=== PATIENT | male | born 1955 | race Caucasian/White ===

== ENCOUNTER 2018-12-08 17:37 | Inpatient (IN) | payer OTHER, BC ==
[~2018-12-08] VITALS: Ht 177.8 cm; Wt 162.4 kg
[2018-12-08 17:54] VITALS: BP 171/107
[2018-12-08 18:55] LABS: BASOPHILS % (AUTO) 0.5 % (0.0-2.0); EOSINOPHILS # (AUTO) 0.3 K/uL (0-0.4); EOSINOPHILS % (AUTO) 3.7 % (0.0-4.0); HEMATOCRIT 37.8 % (36-52); HEMOGLOBIN 12.1 g/dL (12.0-18.0); LYMPHOCYTES # (AUTO) 1.8 K/uL (2.0-11.5); LYMPHOCYTES % (AUTO) 20.3 % (20.5-51.1); MEAN CORPUSCULAR HEMOGLOBIN 31 pg (27-31); MEAN CORPUSCULAR HGB CONC 32 g/dL (33-37); MEAN CORPUSCULAR VOLUME 95.1 fL (80-94); MONOCYTES # (AUTO) 0.7 K/uL (0.8-1.0); MONOCYTES % (AUTO) 8.1 % (1.7-9.3); NEUTROPHILS # (AUTO) 5.9 K/uL (1.8-7.7); NEUTROPHILS % (AUTO) 67.4 % (42.2-75.2); PLATELET COUNT (AUTO) 223 K/uL (140-450); RED BLOOD CELL COUNT(AUTO) 3.97 MIL/uL (4.20-6.10); RED CELL DISTRIBUTION WIDTH 14.7 % (11.6-13.7); WHITE BLOOD COUNT (AUTO) 8.7 K/uL (4.8-10.8)
[2018-12-08 19:09] LABS: ANION GAP 13.1 (8-16); CARBON DIOXIDE 27.8 mmol/L (21-32); POTASSIUM 3.9 mmol/L (3.5-5.1)
[2018-12-08 19:15] LABS: ALBUMIN 2.7 g/dL (3.4-5.0); TOTAL BILIRUBIN 0.4 mg/dL (0.0-1.0)
[2018-12-08] MEDS ORDERED: ALBUTEROL SULFATE/IPRATROPIU 3 ML SOL IH ONE (19:45)
[2018-12-08] MEDS ORDERED: NACL 0.9% 1,000 ML IV SCH (20:17)
[2018-12-08] MEDS ORDERED: ACETAMINOPHEN 325 MG TAB PO PRN (20:20)
[2018-12-08] MEDS ORDERED: DOCUSATE SODIUM 100 MG GELCAP PO PRN (20:20)
[2018-12-08] MEDS ORDERED: LORazepam 2 MG/ML VIAL IM/IVP PRN (20:20)
[2018-12-08] MEDS ORDERED: ONDANSETRON 4 MG/2 ML VIAL IM/IVP PRN (20:20)
[2018-12-08] MEDS ORDERED: HYDROcodone/APAP 5/325 MG 1 TAB TAB PO PRN (20:20)
[2018-12-08] MEDS ORDERED: ALBUTEROL SULFATE/IPRATROPIU 3 ML SOL IH PRN (20:25)
[2018-12-08] MEDS ORDERED: amLODIPine 5 MG TAB PO SCH (21:15)
[2018-12-08 21:20] VITALS: BP 175/106
[2018-12-08 21:38] LABS: PROTHROMBIN TIME 10.4 secs (10.8-13.4)
[2018-12-08] MEDS ORDERED: INFLUENZA VIRUS VACCINE QUAD 0.5 ML SYR IMVAC PRN (22:05)
[2018-12-08] MEDS ORDERED: PNEUMOCOCCAL VACCINE 23 MCG/0.5 ML VIAL IMVAC SCH (22:05)
[2018-12-08 22:12] LABS: PHOSPHORUS 4.5 mg/dL (2.5-4.9); THYROID STIMULATING HORMONE 2.91 uIU/mL (0.34-3.74)
[2018-12-08] MEDS: METOPROLOL 25 MG TAB PO SCH (22:29)
[2018-12-08] MEDS ORDERED: METOPROLOL 25 MG TAB ONE (22:35)
[2018-12-09] VITALS: BP 204/120
[2018-12-09] MEDS ORDERED: hydrALAZINE 20 MG/ML VIAL IVP PRN (00:05)
[2018-12-09] MEDS ORDERED: cloNIDine 0.1 MG TAB PO SCH (01:25)
[2018-12-09 01:27] LABS: BARBITURATE, URINE NEG. ng/ml (NEG <=200); CANNABINOID, URINE NEG. ng/mL (NEG <=50); COCAINE, URINE NEG. ng/mL (NEG <=300); OPIATE, URINE NEG. ng/mL (NEG <=2000); PHENCYCLIDINE SCREEN,URINE NEG. ng/mL (NEG <=25)
[2018-12-09 01:51] LABS: BENZODIAZEPINE, URINE NEG. ng/mL (NEG <=200)
[2018-12-09 01:54] LABS: APPEARANCE,URINE CLEAR (CLEAR); BILIRUBIN,URINE NEGATIVE (NEGATIVE); BLOOD, URINE TRACE-L (NEGATIVE); COLOR,URINE YELLOW (YELLOW); LEUKOCYTE ESTERASE ,URINE NEGATIVE (NEGATIVE); NITRITE, URINE NEGATIVE (NEGATIVE); UGLUCOSE NEGATIVE (NEGATIVE)
[2018-12-09 01:56] LABS: RBC,URINE 0-5 (RARE) /HPF (0-5); WBC,URINE 0-5 (RARE) /HPF (0-5)
[2018-12-09 04:00] VITALS: BP 132/87
[2018-12-09 04:10] LABS: ANION GAP 9.7 (8-16); CARBON DIOXIDE 29.1 mmol/L (21-32); POTASSIUM 3.8 mmol/L (3.5-5.1)
[2018-12-09 04:15] LABS: CHOL/HDL RATIO 2.9 (1-4.5)
[2018-12-09 04:16] LABS: BASOPHILS # (AUTO) 0.1 K/uL (0.00-0.22); BASOPHILS % (AUTO) 0.7 % (0.0-2.0); EOSINOPHILS # (AUTO) 0.4 K/uL (0-0.4); EOSINOPHILS % (AUTO) 4.9 % (0.0-4.0); HEMATOCRIT 33.1 % (36-52); HEMOGLOBIN 10.7 g/dL (12.0-18.0); LYMPHOCYTES # (AUTO) 1.3 K/uL (2.0-11.5); LYMPHOCYTES % (AUTO) 16.4 % (20.5-51.1); MEAN CORPUSCULAR HEMOGLOBIN 31 pg (27-31); MEAN CORPUSCULAR HGB CONC 32 g/dL (33-37); MEAN CORPUSCULAR VOLUME 95.1 fL (80-94); MONOCYTES # (AUTO) 0.7 K/uL (0.8-1.0); MONOCYTES % (AUTO) 9.2 % (1.7-9.3); NEUTROPHILS # (AUTO) 5.5 K/uL (1.8-7.7); NEUTROPHILS % (AUTO) 68.8 % (42.2-75.2); PLATELET COUNT (AUTO) 199 K/uL (140-450); RED BLOOD CELL COUNT(AUTO) 3.48 MIL/uL (4.20-6.10); RED CELL DISTRIBUTION WIDTH 14.5 % (11.6-13.7)
[2018-12-09] MEDS: ALBUTEROL SULFATE/IPRATROPIU 3 ML SOL IH SCH ×3 (07:51→20:13)
[2018-12-09] MEDS: BUDESONIDE 0.25 MG/2 ML NEBU INH SCH ×2 (07:51→20:14)
[2018-12-09 08:00] VITALS: BP 149/93
[2018-12-09] MEDS: METOPROLOL 25 MG TAB PO SCH ×2 (08:28→20:05)
[2018-12-09] MEDS: MULTIVITAMIN/MINERALS 1 TAB PO SCH (08:29)
[2018-12-09] MEDS: CYANOCOBALAMIN 100 MCG TAB PO SCH (08:29)
[2018-12-09] MEDS: guaiFENesin DM 200/20 MG-10 ML 10 ML UDC PO PRN ×2 (08:29→20:05)
[2018-12-09] MEDS ORDERED: predniSONE 20 MG TAB PO SCH (09:16)
[2018-12-09 12:00] VITALS: BP 118/69
[2018-12-09 16:00] VITALS: BP 156/85
[2018-12-09 20:00] VITALS: BP 171/93
[2018-12-10] VITALS (7 sets, daily range): BP systolic 131–163; BP diastolic 71–98
[2018-12-10 06:58] LABS: BASOPHILS # (AUTO) 0.1 K/uL (0.00-0.22); BASOPHILS % (AUTO) 0.8 % (0.0-2.0); EOSINOPHILS # (AUTO) 0.1 K/uL (0-0.4); EOSINOPHILS % (AUTO) 1.4 % (0.0-4.0); HEMOGLOBIN 10.6 g/dL (12.0-18.0); LYMPHOCYTES # (AUTO) 1.4 K/uL (2.0-11.5); LYMPHOCYTES % (AUTO) 16.1 % (20.5-51.1); MEAN CORPUSCULAR HEMOGLOBIN 31 pg (27-31); MEAN CORPUSCULAR HGB CONC 32 g/dL (33-37); MEAN CORPUSCULAR VOLUME 95.8 fL (80-94); MONOCYTES # (AUTO) 0.9 K/uL (0.8-1.0); MONOCYTES % (AUTO) 10.1 % (1.7-9.3); NEUTROPHILS # (AUTO) 6.2 K/uL (1.8-7.7); NEUTROPHILS % (AUTO) 71.6 % (42.2-75.2); PLATELET COUNT (AUTO) 203 K/uL (140-450); RED BLOOD CELL COUNT(AUTO) 3.44 MIL/uL (4.20-6.10); RED CELL DISTRIBUTION WIDTH 14.8 % (11.6-13.7); WHITE BLOOD COUNT (AUTO) 8.7 K/uL (4.8-10.8)
[2018-12-10] MEDS: ALBUTEROL SULFATE/IPRATROPIU 3 ML SOL IH SCH ×3 (07:25→20:15)
[2018-12-10] MEDS: BUDESONIDE 0.25 MG/2 ML NEBU INH SCH ×2 (07:33→20:16)
[2018-12-10 07:41] LABS: ANION GAP 8.5 (8-16); CARBON DIOXIDE 30.8 mmol/L (21-32); POTASSIUM 4.3 mmol/L (3.5-5.1)
[2018-12-10] MEDS: NACL 0.9% 1,000 ML IV SCH ×3 (07:55→21:09)
[2018-12-10] MEDS ORDERED: predniSONE 20 MG TAB PO SCH ×2 (09:00→11:34)
[2018-12-10] MEDS: METOPROLOL 25 MG TAB PO SCH ×2 (09:09→21:08)
[2018-12-10] MEDS: POLYVINYL ALCOHOL 1.4% OP 15 ML SOL OP SCH ×3 (09:09→16:12)
[2018-12-10] MEDS: CYANOCOBALAMIN 100 MCG TAB PO SCH (09:09)
[2018-12-10] MEDS: MULTIVITAMIN/MINERALS 1 TAB PO SCH (09:09)
[2018-12-10] MEDS ORDERED: ASPIRIN 81 MG TAB.CHEW PO SCH (11:30)
[2018-12-10] MEDS ORDERED: ATORVASTATIN 20 MG TAB PO SCH (11:30)
[2018-12-10] MEDS ORDERED: amLODIPine 5 MG TAB PO SCH (13:00)
[2018-12-10] MEDS: MUPIROCIN CA NASAL 2% 1GM TUBE NS SCH (16:13)
[2018-12-10] MEDS: CHLORHEXADINE GLUC 2% CLOTH TP SCH (16:18)
[2018-12-10] MEDS ORDERED: TERAZOSIN 1 MG CAP PO SCH (21:00)
[2018-12-10] MEDS: guaiFENesin DM 200/20 MG-10 ML 10 ML UDC PO PRN (21:01)
[2018-12-10] MEDS: DABIGATRAN ETEXILATE MESYLAT 75 MG CAP PO SCH (21:06)
[2018-12-11] VITALS: BP 140/69
[2018-12-11] MEDS: NACL 0.9% 1,000 ML IV SCH ×2 (03:55→07:55)
[2018-12-11 04:00] VITALS: BP 159/66
[2018-12-11 06:33] LABS: BASOPHILS % (AUTO) 0.2 % (0.0-2.0); EOSINOPHILS # (AUTO) 0.1 K/uL (0-0.4); HEMATOCRIT 32.6 % (36-52); HEMOGLOBIN 10.3 g/dL (12.0-18.0); LYMPHOCYTES # (AUTO) 1.1 K/uL (2.0-11.5); LYMPHOCYTES % (AUTO) 16.3 % (20.5-51.1); MEAN CORPUSCULAR HEMOGLOBIN 31 pg (27-31); MEAN CORPUSCULAR HGB CONC 32 g/dL (33-37); MEAN CORPUSCULAR VOLUME 96.7 fL (80-94); MONOCYTES # (AUTO) 0.5 K/uL (0.8-1.0); MONOCYTES % (AUTO) 7.7 % (1.7-9.3); NEUTROPHILS # (AUTO) 4.8 K/uL (1.8-7.7); NEUTROPHILS % (AUTO) 74.8 % (42.2-75.2); PLATELET COUNT (AUTO) 178 K/uL (140-450); RED BLOOD CELL COUNT(AUTO) 3.37 MIL/uL (4.20-6.10); RED CELL DISTRIBUTION WIDTH 14.7 % (11.6-13.7); WHITE BLOOD COUNT (AUTO) 6.4 K/uL (4.8-10.8)
[2018-12-11] MEDS: BUDESONIDE 0.25 MG/2 ML NEBU INH SCH ×2 (07:30→19:27)
[2018-12-11] MEDS: ALBUTEROL SULFATE/IPRATROPIU 3 ML SOL IH SCH ×3 (07:30→19:00)
[2018-12-11 08:00] VITALS: BP 153/93
[2018-12-11] MEDS ORDERED: predniSONE 20 MG TAB PO SCH (09:00)
[2018-12-11] MEDS ORDERED: ASPIRIN 81 MG TAB.CHEW PO SCH (09:00)
[2018-12-11] MEDS ORDERED: amLODIPine 5 MG TAB PO SCH (09:00)
[2018-12-11] MEDS ORDERED: ATORVASTATIN 20 MG TAB PO SCH (09:00)
[2018-12-11] MEDS: POLYVINYL ALCOHOL 1.4% OP 15 ML SOL OP SCH ×3 (09:02→17:20)
[2018-12-11] MEDS: CYANOCOBALAMIN 100 MCG TAB PO SCH (09:05)
[2018-12-11] MEDS: METOPROLOL 25 MG TAB PO SCH (09:05)
[2018-12-11] MEDS: MULTIVITAMIN/MINERALS 1 TAB PO SCH (09:05)
[2018-12-11] MEDS: DABIGATRAN ETEXILATE MESYLAT 75 MG CAP PO SCH (09:10)
[2018-12-11 10:40] LABS: ANION GAP 9.6 (8-16); CARBON DIOXIDE 29.1 mmol/L (21-32); POTASSIUM 4.7 mmol/L (3.5-5.1)
[2018-12-11] MEDS ORDERED: ARTOP OP (14:05)
[2018-12-11] MEDS ORDERED: APR20I IVP (14:05)
[2018-12-11] MEDS ORDERED: ALBU0.0912 IH (14:05)
[2018-12-11] MEDS ORDERED: ALBU3SOL83 IH (14:05)
[2018-12-11] MEDS ORDERED: ASPI81CT95 PO (14:05)
[2018-12-11] MEDS ORDERED: DEXT5SYR3 PO (14:05)
[2018-12-11] MEDS ORDERED: METO25TA PO (14:05)
[2018-12-11] MEDS ORDERED: CHLO118S2 TP (14:05)
[2018-12-11] MEDS ORDERED: DABI75CA PO (14:05)
[2018-12-11] MEDS ORDERED: BUDE90PO IH (14:05)
[2018-12-11] MEDS ORDERED: BACTNA NS (14:05)
[2018-12-11] MEDS ORDERED: TERA1CAP7 PO (14:05)
[2018-12-11] MEDS ORDERED: DOCU-299 PO (14:05)
[2018-12-11] MEDS ORDERED: ATOR20TA40 PO (14:05)
[2018-12-11] MEDS ORDERED: PRED20TA5 PO (14:05)
[2018-12-11] MEDS ORDERED: AMLO5TAB4 PO (14:05)
[2018-12-11] MEDS ORDERED: VITB12 PO (14:05)
[2018-12-11] MEDS ORDERED: PNEUMOCOCCAL VACCINE 23 MCG/0.5 ML VIAL IMVAC SCH (15:40)
[2018-12-11] MEDS ORDERED: INFLUENZA VIRUS VACCINE QUAD 0.5 ML SYR IMVAC PRN (15:40)
[2018-12-11 16:00] VITALS: BP 154/81
[2018-12-11] MEDS: CHLORHEXADINE GLUC 2% CLOTH TP SCH (16:14)
[2018-12-11] MEDS: MUPIROCIN CA NASAL 2% 1GM TUBE NS SCH (16:14)
== END 2018-12-11 19:10 | DRG 280 ==
LOC: MED 17:37 → MTU 20:23
PROVIDERS: ADMIT General Practice; ATTEND General Practice
PROC: 3E0234Z Introduction of Serum, Toxoid and Vaccine into Muscle, Percutaneous Approach (ICD-10-PCS; principal; 2018-12-11)
PROC: 3E02340 Introduction of Influenza Vaccine into Muscle, Percutaneous Approach (ICD-10-PCS; 2018-12-11)
DX: I21.A1 Myocardial infarction type 2 (principal); N17.0 Acute kidney failure with tubular necrosis; I50.43 Acute on chronic combined systolic (congestive) and diastolic (congestive) heart failure; E43 Unspecified severe protein-calorie malnutrition; J44.0 Chronic obstructive pulmonary disease with (acute) lower respiratory infection; J45.901 Unspecified asthma with (acute) exacerbation; Z68.42 Body mass index [BMI] 45.0-49.9, adult; I69.354 Hemiplegia and hemiparesis following cerebral infarction affecting left non-dominant side; I13.0 Hypertensive heart and chronic kidney disease with heart failure and stage 1 through stage 4 chronic kidney disease, or unspecified chronic kidney disease; J44.1 Chronic obstructive pulmonary disease with (acute) exacerbation; Z86.718 Personal history of other venous thrombosis and embolism; N18.9 Chronic kidney disease, unspecified; E66.01 Morbid (severe) obesity due to excess calories; F32.9 Major depressive disorder, single episode, unspecified; J20.9 Acute bronchitis, unspecified; Z91.19 Patient's noncompliance with other medical treatment and regimen; Z23 Encounter for immunization; D53.9 Nutritional anemia, unspecified
CPT/HCPCS: 36415; 71045; 71046; 80048; 80053; 80305; 81001; 83036; 83690; 83735; 83880; 84100; 84443; 84484; 85025; 85610; 85730; 87081; 87804; 90658; 90732; 93005; 93925; 93970; 94640; 97110; 97530; 99285; J0360; J1644; J7030; J7512; J7620; J7626; Q0092